=== PATIENT | male | born 2000 | race Caucasian/White ===

== ENCOUNTER 2022-12-19 10:05 | Emergency (ER) | payer BC, SELFPAY ==
[2022-12-19 10:15] VITALS: BP 141/98; PULSE 105; RESP 18; TEMP 36.7; O2SAT 100
--- NOTE | 2022-12-19 10:19 | ED.ABDPAIN ---
HPI - Abdominal Pain General Chief Complaint: Nausea/Vomiting/Diarrhea Stated Complaint: Abdominal Pain/Vomiting Source: patient and RN notes reviewed History of Present Illness HPI narrative: 22 yo M presents to urgent care with complaints of vomiting, diarrhea, and abdominal pain x 2-3 days. Pt states he was constipated so hes been taking Miralax and had some diarrhea this morning. Pt states he has been having abdominal pains ever since he had surgery in Oct. Pt states his abdominal pains alternate from left to right. Pt states the pains have gotten a little worse in the last 2 days. Denies any fevers, chills, chest pain, or SOB. Pt denies any sore throat or ear pain. Related Data Home Medications Medication Instructions Recorded Confirmed quetiapine 25 mg tablet (Seroquel) 25 mg PO HS 12/19/22 12/19/22 Allergies Allergy/AdvReac Type Severity Reaction Status Date / Time No Known Allergies Allergy Verified 12/19/22 10:25 Review of Systems Review of Systems: Pertinent positives and pertinent negatives per HPI. PMFSH Comments At the time of my signature, I reviewed and agree with the nursing past medical, surgical, social, and family history. There is no relevant family history pertinent to the patient complaint. Exam Narrative: GENERAL: This is a well-nourished, well-developed patient, in no apparent distress. HEAD: normocephalic, atraumatic. EYES: Sclera clear/white. Vision is grossly intact. EARS: External ears normal, auditory canals clear and without drainage, TMs normal without perforation. Hearing grossly intact. NOSE: External nose normal with no obvious nasal discharge, nares without redness, no rhinorrhea. THROAT: Mucous membranes moist, posterior pharynx clear. NECK: Neck supple, non-tender without lymphadenopathy, masses or thyromegaly. CARDIOVASCULAR: Regular rate and rhythm without murmurs, gallops, or rubs. RESPIRATORY: Clear to auscultation. Breath sounds equal bilaterally. No wheezes, rales, or rhonchi. GASTROINTESTINAL: Abdomen soft, tender to left upper and left lower currently. SKIN: warm, intact with no suspicious lesions or rash, good texture and turgor. NEURO: awake, alert, and oriented to person, place and time. There were no obvious focal neurologic abnormalities. Course Course Level of Care: Express Care Visit Vital Signs Vital signs: Vital Signs Temperature 98.1 F 12/19/22 10:15 Pulse Rate 105 H 12/19/22 10:15 Respiratory Rate 18 12/19/22 10:15 Blood Pressure 141/98 H 12/19/22 10:15 Pulse Oximetry 100 12/19/22 10:15 Oxygen Delivery Room Air 12/19/22 10:15 Temperature 98.1 F 12/19/22 10:28 Pulse Rate 105 H 12/19/22 10:28 Respiratory Rate 18 12/19/22 10:28 Blood Pressure 141/98 H 12/19/22 10:28 Pulse Oximetry 100 12/19/22 10:28 Oxygen Delivery Room Air 12/19/22 10:28 Reviewed MDM - Abdominal Pain MDM Narrative Medical decision making narrative: You've been diagnosed with a viral illness that would not require antibiotics at this time. Take the Zofran ODT at home as directed for nausea and get plenty of fluids. You may take Imodium for diarrhea and the Bentyl for abdominal cramping. If you would like to eat food, you should follow the BRAT diet (bananas, rice, applesauce, and toast, or things of the like). If you develop any new or worsening symptoms, you should go to the emergency dept without hesitation. Follow up with your gas leak inspector in 2-5 days. PT was instructed to go to the ER with any new or worsening symptoms. Differential Diagnosis Differential diagnosis: Likely constipation, gastroenteritis and other (dehydration) Critical Care Time Critical Care Time Critical Care Time: No Discharge Plan Discharge Clinical Impression: Gastroenteritis Patient Disposition: Home, Self-Care Condition: Stable Instructions: Gastroenteritis (DC) Additional Instructions: You've been diagnosed with a viral illness that wo
[2022-12-19 10:28] VITALS: BP 141/98; PULSE 105; RESP 18; TEMP 36.7; O2SAT 100
== END 2022-12-19 10:40 | disposition home or self-care (01) ==
PROVIDERS: Emergency Provider Nurse Practitioner Family
DX: K52.9 Noninfective gastroenteritis and colitis, unspecified (principal); F32.A Depression, unspecified
CPT/HCPCS: 99213; G0463

== ENCOUNTER 2022-12-30 11:47 | Emergency (ER) | payer BC, SELFPAY ==
[2022-12-30 11:54] VITALS: BP 133/98; PULSE 116; RESP 20; TEMP 37; O2SAT 100
--- NOTE | 2022-12-30 11:54 | ED.ABDPAIN ---
HPI - Abdominal Pain General Chief Complaint: Abdominal Pain Stated Complaint: Abdominal Pain Time Seen by Provider: 12/30/22 11:54 Source: patient and RN notes reviewed History of Present Illness HPI narrative: Patient is a 22-year-old male who presents to urgent care with complaints of continuing abdominal pain, nausea and loose stools. Patient was seen at our facility last week for the same symptoms and was given Bentyl and Zofran. Patient was advised to go to the emergency room if symptoms persisted. Patient states that Friday the symptoms started back up and he has had multiple bouts of vomiting today with some lightheadedness and abdominal discomfort. Patient denies any fevers. Patient has not followed up with the primary care doctor. Currently denies any nausea at this time. Patient is requesting a work note. No other acute complaints. No acute distress noted. Patient aware of the plan of care. Some parts of this dictation were generated by voice recognition software and may contain typographical and/or grammatical inaccuracies. Related Data Home Medications Medication Instructions Recorded Confirmed quetiapine 25 mg tablet (Seroquel) 25 mg PO HS 12/19/22 12/19/22 Allergies Allergy/AdvReac Type Severity Reaction Status Date / Time No Known Allergies Allergy Verified 12/19/22 10:25 Review of Systems Review of Systems: CONSTITUTIONAL: Denies fever, chills, or sweats. EYES: Denies visual changes, redness, or discharge. ENT: Denies rhinorrhea, congestion, sore throat, or otalgia. CARDIOVASCULAR: Denies chest pain, palpitations, or edema. RESPIRATORY: Denies cough or dyspnea. GASTROINTESTINAL: Reports abdominal discomfort, nausea, vomiting and loose stools GENITOURINARY: Denies dysuria or hematuria. SKIN: Denies rash or itching. MUSCULOSKELETAL: Denies back pain, joint pain, or myalgia. NEUROLOGIC: Denies headache, numbness, or weakness. All other systems reviewed are negative, except as documented in HPI. PMFSH Comments At the time of my signature, I reviewed and agree with the nursing past medical, surgical, social, and family history. There is no relevant family history pertinent to the patient complaint. Exam Narrative: GENERAL: This is a well-nourished, well-developed patient, in no apparent distress. HEAD: normocephalic, atraumatic. EYES: PERRL. Sclera clear/white. Vision is grossly intact. EARS: External ears normal NOSE: External nose normal with no obvious nasal discharge, nares without redness, no rhinorrhea. THROAT: Mucous membranes moist NECK: Neck supple GASTROINTESTINAL: Abdomen soft, diffuse abdominal tenderness, nondistended. Bowel sounds are hypo active. SKIN: warm, intact with no suspicious lesions or rash, good texture and turgor. NEURO: awake, alert, and oriented to person, place and time. There were no obvious focal neurologic abnormalities. EXTREMITIES: No clubbing, cyanosis, or edema. Course Course Level of Care: Express Care Visit Vital Signs Vital signs: Vital Signs Temperature 98.6 F 12/30/22 11:54 Pulse Rate 116 H 12/30/22 11:54 Respiratory Rate 20 12/30/22 11:54 Blood Pressure 133/98 H 12/30/22 11:54 Pulse Oximetry 100 12/30/22 11:54 Oxygen Delivery Room Air 12/30/22 11:54 Temperature 98.6 F 12/30/22 11:54 Pulse Rate 116 H 12/30/22 11:54 Respiratory Rate 20 12/30/22 11:54 Blood Pressure 133/98 H 12/30/22 11:54 Pulse Oximetry 100 12/30/22 11:54 Oxygen Delivery Room Air 12/30/22 11:54 Reviewed- Patient is informed that they may have pre-hypertension or hypertension based on a blood pressure reading in the department. I recommend the patient call the primary care provider listed on their discharge instructions or a physician of their choice this week to arrange follow-up for further evaluation of possible pre-hypertension or hypertension. MDM - Abdominal Pain MDM Narrative Medical decision making narrative: Advised the patient t
== END 2022-12-30 12:29 | disposition left against medical advice (07) ==
PROVIDERS: Emergency Provider Nurse Practitioner Family
DX: R10.84 Generalized abdominal pain (principal)
CPT/HCPCS: 99211; G0463

== ENCOUNTER 2022-12-30 17:56 | Inpatient (IN) | payer BC, SELFPAY ==
[2022-12-30] VITALS (31 sets, daily range): BP systolic 120–154; BP diastolic 77–108; PULSE 91–120; RESP 15–23; O2SAT 97–100
--- NOTE | ~2022-12-30 | XR_ITS ---
EXAMINATION: XR chest 1V portable 12/30/2022 19:54 INDICATION: Epigastric pain PROCEDURE: 2 view chest COMPARISON: No prior studies for comparison. FINDINGS: The lungs are clear. The cardiomediastinal silhouette is within normal limits. There are no pleural effusions. There is no pneumothorax suspected. IMPRESSION: 1: NO ACUTE CARDIOPULMONARY DISEASE. Reviewed, dictated and finalized at location A.
--- NOTE | ~2022-12-30 | MR_ITS ---
EXAMINATION: MR MRCP wo/w con/w 3D wo ind DATE: 12/31/2022 17:09 INDICATION: Pancreatitis. Cyst. TECHNIQUE: Magnetic resonance imaging (MRI) of the abdomen was performed without and with 18 mL Multi anurag intravenous contrast. Sequences included coronal T2-weighted SS-FSE, coronal T2-weighted FS SS- FSE, coronal T2-weighted FS FIESTA, axial T2-weighted FS FIESTA, axial T2-weighted FIESTA, sagittal T 2-weighted SS-FSE, axial T1-weighted dual-echo FSPGR, axial T2-weighted SS-FSE, axial T1-weighted LAV A, axial T2-weighted STIR FSE. Thick-slab T2-weighted FRFSE-XL images were obtained for magnetic reso nance cholangiopancreatography (MRCP). Rotating maximum intensity projection 3-D reconstructions of t he volumetric data were created by the technologist. Postcontrast sequences included a time course of axial T1-weighted LAVA. COMPARISON: CT dated 12/30/2022 FINDINGS: ABDOMEN MRI: Heart size is normal. No pericardial effusion. Very small bilateral posterior layering pleural effusi ons. Mild dependent consolidation in the posterior left lower lobe which is new since the prior CT mo st likely representing dependent atelectasis. There is mild intrahepatic biliary ductal dilation. Jacqui er, gallbladder, spleen, bilateral kidneys and left adrenal gland are normal. There are a couple 8-9 mm fat saturating nodules is corresponding fat attenuation on CT in the right adrenal gland consisten t with myelolipomas. Low signal intensity associated with the small coarse calcifications at the righ t adrenal gland which likely represents sequela of prior hemorrhage or infection. No pathologically e nlarged abdominal lymphadenopathy. Mild thoracic spondylosis. Normal marrow signal throughout with no pathologic marrow replacing process. Large multiloculated cystic lesion which appears to arise from the tail of the pancreas which measure s 20.9 cm craniocaudally and 15.4 x 9.4 cm in maximal axial dimensions. The mass exerts mass effect u abdiel the more anterior stomach and on the distal transverse colon and small bowel which are displaced inferiorly. There is a relatively uniform approximately 2 mm thick smooth peripheral wall. No nodular soft tissue component or discernible enhancement associated with internal septations which are best appreciated on the thin SS-FSE T2-weighted sequences in axial, sagittal and coronal imaging planes. T he smaller 3.8 x 3.7 x 2.6 cm cystic lesion at the neck of the pancreas demonstrates a small amount o f more amorphous intraluminal material with decreased signal on the T2-weighted images but also witho ut evident enhancing soft tissue component. On the coronal and axial thin SS-FSE T2-weighted sequence s there appears to be communication with the main pancreatic duct which measures approximately 3 mm. Definitive cortication between the larger cystic lesion in the main pancreatic duct is unable be iden tified. There is inflammatory stranding with T2 hyperintense edema surrounding the large pancreatic m ass and extending to the retroperitoneal fat of the left and right upper abdomen and extending more c audally into the lower quadrants posterior to the paracolic gutters which is consistent with provided history of acute pancreatitis. ABDOMEN MRCP: No intra or extra hepatic biliary ductal dilation. The common bile duct measures up to 4 mm maximal d iameter which is normal. No choledocholithiasis or other intra-abdominal ductal filling defects appre ciated. Aspiration noted there is mild dilation of the main pancreatic duct the region of the neck of the pancreas which tapers to normal caliber in the more distal body and tail. IMPRESSION: 1. Acute interstitial pancreatitis with a couple complex cystic lesions the larger at the tail the pa ncreas measuring up to 20.9 cm and the smaller measuring 3.8 cm the neck of the pancreas. The former contains multiple very thin internal septations without discernible enhanc
--- NOTE | ~2022-12-30 | CT_ITS ---
EXAMINATION: CT abdomen pelvis w con DATE: 12/30/2022 19:40 INDICATION: Abdominal pain TECHNIQUE: Computed tomography (CT) of the abdomen and pelvis was performed with 100 cc Omnipaque 350 intravenous contrast. The dose-length product was 553.82 mGy-cm. Automated exposure control and iter ative reconstruction technique were employed. COMPARISON: None. FINDINGS: There is a large cystic mass in the left upper abdomen measuring 19 x 12.6 cm greatest mariya nal dimension, no free air. There is a cystic mass in the head of the pancreas measuring 3.1 cm. Ther e is mild prominence of the pancreatic duct. No significant vascular abnormality. No lymphadenopathy. There is free fluid in the pelvis. With mass effect on the stomach. There are multiple varices at th e splenic hilum. Spleen is mildly prominent. Lung bases are unremarkable. Heart size normal. No significant pleural or pericardial effusion. The l iver, left adrenal gland and kidneys are unremarkable. There are coarse calcifications of the right a drenal gland, possibly sequela of previous trauma or infection. Gallbladder is contracted. Nonobstruc tive bowel gas pattern. IMPRESSION: 1. Large cystic mass in the left upper abdomen measuring up to 19 cm with mass effect on the adjacent bowel. This could represent a large pancreatic pseudocyst with a second cyst at the pancreatic head measuring 3.1 cm. The differential diagnosis includes pseudocyst, intraductal papillary mucinous neop lasm (IPMN), mucinous cystic neoplasm (MCN), and the less common serous cystadenoma and neuroendocrin e tumor. Correlate for previous history of pancreatitis. 2: Multiple varices are identified at the splenic hilum. Cannot exclude portal hypertension. 3: Moderate free fluid in the pelvis of uncertain origin. Reviewed, dictated and finalized at location A. IMPRESSION: 1. Large cystic mass in the left upper abdomen measuring up to 19 cm with mass effect on the adjacent bowel. This could represent a large pancreatic pseudocys t with a second cyst at the pancreatic head measuring 3.1 cm. The differential diagnosis includes pseudocyst, intraductal papillary mucinous neoplasm (IPMN), mucinous cystic neoplasm (MCN), and the less common serous cystadenoma and neur oendocrine tumor. Correlate for previous history of pancreatitis. 2: Multiple varices are identified at the splenic hilum. Cannot exclude portal hypertension. 3: Moderate free fluid in the pelvis of uncertain origin.
--- NOTE | ~2022-12-30 | XR_ITS ---
XR abdomen/kub 1V 12/31/2022 18:40 INDICATION: Vomiting with abdominal pain TECHNIQUE: KUB COMPARISON: None FINDINGS: Bowel gas pattern is normal. There is no evidence of free air, mass, organomegaly, ascites or obstruction. No abnormal calculi are seen. The bones appear intact. IMPRESSION: 1: No acute abdominal abnormality identified. Reviewed, dictated and finalized at location A.
--- NOTE | 2022-12-30 18:28 | ED.ABDPAIN ---
HPI - Abdominal Pain General Chief Complaint: Abdominal Pain <SAMPSON Santana Last Filed: 12/31/22 02:57> Stated Complaint: abd pain <SAMPSON Santana Last Filed: 12/31/22 02:57> Time Seen by Provider: 12/30/22 18:09 <Veronica Santamaria PA-C - Last Filed: 12/31/22 02:57> History of Present Illness HPI narrative: 22-year-old male with a history of substance abuse reports for evaluation of generalized abdominal pain for 2 months, worsening over the past week especially over the past 3 days. Patient reports 2 episodes of diarrhea daily and multiple episodes of vomiting the past week. States he has not been able to eat the past week because every time he eats, he vomits. Patient also reporting 2 episodes of diarrhea per day, nonbloody and nonmelanotic. He was evaluated by urgent care on 12/19, diagnosed with gastroenteritis and prescribed Zofran and Bentyl with improvement in pain. States the pain worsened again 3 days ago. Patient states the pain started in October after he was hospitalized for a heroin overdosed and then subsequently sent to a psychiatric facility and was started on Seroquel. Denies fevers, urinary complaints, focal numbness or weakness, chest pain. Denies history of biliary disease. Last reported alcohol drink was 2 weeks ago, states he had 4 drinks at that time. <Veronica Santamaria PA-C - Last Filed: 12/31/22 02:57> Related Data Home Medications: Home Medications Medication Instructions Recorded Confirmed quetiapine 25 mg tablet (Seroquel) 200 mg PO HS 12/19/22 12/31/22 <SAMPSON Santana Last Filed: 12/31/22 02:57> Allergies/Adverse Reactions: Allergies Allergy/AdvReac Type Severity Reaction Status Date / Time No Known Allergies Allergy Verified 12/19/22 10:25 <SAMPSON Santana Last Filed: 12/31/22 02:57> Review of Systems Review of Systems: CONSTITUTIONAL: Denies fever, chills EYES: Denies visual changes, redness, or discharge. ENT: Denies rhinorrhea, congestion, sore throat, or otalgia. CARDIOVASCULAR: Denies chest pain, palpitations, or edema. RESPIRATORY: Denies cough or dyspnea. GASTROINTESTINAL: See HPI GENITOURINARY: Denies dysuria or hematuria. SKIN: Denies rash or itching. MUSCULOSKELETAL: Denies back pain, joint pain, or myalgia. NEUROLOGIC: Denies headache, numbness, dizziness, or weakness. PSYCHIATRIC: Denies anxiety or depression. 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 History of tonsillectomy <Veronica Santamaria PA-C - Last Filed: 12/31/22 02:57> Family History Family History: Family History Father Cancer Grandparent Cancer <Veronica Santamaria PA-C - Last Filed: 12/31/22 02:57> Social History Social History: Social History (Updated 12/31/22 @ 13:03 by Lina Childs PA-C) Social History: Surrogate medical decision maker: Meeta Ahn. Code status: Full code. Smoking packs per day: 1 Smoking cigarettes per day: 20.0 Years smoked: 7 Smoking pack-years: 7.00 Smoking status: Current every day smoker Tobacco type: cigarettes Alcohol intake: current Drinks per week: 1 Substance use: current Substance use type: former substance user, marijuana, heroin, amphetamines, methamphetamine and prescription drug Other substance usage details: Current marijuana use. Last use: 12/28/2022 Lack of Transportation: No
[2022-12-30 18:51] LABS: Basophils Absolute Auto 0.1 K/mm3 (0.0-0.1); Basophils Percent Auto 0.3 % (0.2-1.2); Eosinophils Percent Auto 0.2 % (0-4.4); Hematocrit 43.4 % (42.0-52.0); Hemoglobin 14.5 g/dL (14.0-18.0); Immature Granulocyte Absolute 0.09 K/mm3 (0.00-0.031); Immature Granulocyte Percent A 0.5 % (0-0.5); Lymphocytes Absolute Auto 1.36 K/mm3 (0.9-3.2); Lymphocytes Percent Auto 7.4 % (18.3-44.2); Mean Corpuscular HGB Conc 33.4 g/dl (32-36); Mean Corpuscular Hemoglobin 29.7 pg (26-34); Mean Corpuscular Volume 88.9 fl (80-100); Mean Platelet Volume 9.8 fl (7.4-10.4); Monocytes Absolute Auto 1.3 K/mm3 (0.1-0.6); Monocytes Percent Auto 7.2 % (2.6-8.5); Neutrophils Absolute Auto 15.6 K/mm3 (1.3-6.7); Neutrophils Percent Auto 84.4 % (45.5-73.1); Platelet Count Result 286 k/mm3 (150-375); Red Blood Count 4.88 M/mm3 (4.6-6.20); Red Cell Distribution Width 14.1 % (11.5-14.5); White Blood Count 18.5 K/mm3 (4.5-10.0)
[2022-12-30 19:03] LABS: Alanine Aminotransferase 27 U/L (6-50); Albumin Level 4.2 g/dL (3.5-5.1); Alkaline Phosphatase 120 U/L (38-126); Anion Gap 10 mmol/L (8-16); Aspartate Amino Transferase 17 U/L (17-59); Bilirubin,Total 0.8 mg/dL (0.2-1.3); Blood Urea Nitrogen 14 mg/dL (9-20); Calcium 9.8 mg/dL (8.4-10.2); Carbon Dioxide 26 mmol/L (22-30); Chloride 96 mmol/L (98-107); Estimated Glomerular Filt Rate > 60; Glucose 118 mg/dL (65-110); Lipase 1315 U/L (23-300); Potassium 3.9 mmol/L (3.4-5.0); Sodium 132 mmol/L (137-145)
[2022-12-30 19:05] LABS: Lactic Acid Reflex 0.9 mmol/L (0.7-2.0)
[2022-12-30] MEDS: BELLADONNA ALK/PHENOB ELIX 10 ML, MAG HYDROX/ALUMINUM HYD/SIMETH 30 ML, LIDOCAINE HCL 2... PO (19:15)
[2022-12-30] MEDS: SODIUM CHLORIDE 0.9% IV 1,000 ML 999 ML IV CONT ×2 (19:20→20:43)
[2022-12-30] MEDS: ONDANSETRON INJ 4 MG/2 ML VIAL IV PUSH (19:22)
[2022-12-30] MEDS: FAMOTIDINE 20 MG/2 ML VIAL IV PUSH (19:23)
[2022-12-30] MEDS: KETOROLAC 30 MG/ML VIAL (*BKC) IV PUSH (19:25)
[2022-12-30 19:47] LABS: Cholesterol 145 mg/dL (0-200); HDL Direct 29 mg/dL; Triglycerides 129 mg/dL (<150)
[2022-12-30 19:57] LABS: LDL Cholesterol Direct 76 mg/dL
[2022-12-30 20:02] LABS: Ethanol < 10 mg/dL (<10)
[2022-12-30] MEDS: MORPHINE SULFATE (*CRX) 4 MG/ML INJ IV PUSH (20:10)
[2022-12-30 22:03] LABS: Appearance Urine Clear (Clear); Bilirubin Urine 1+ (Negative); Blood Urine Negative (Negative); Color Urine Yellow (Yellow); Glucose Urine UA Negative (Negative); Ketones Urine Negative (Negative); Leukocyte Esterase Ur Negative LEU/UL (Negative); Nitrate Urine Negative (Negative); Protein Urine 2+ mg/dL (Negative); Specific Grav Ur <= 1.005 (1.001-1.035); Urobilinogen Urine 0.2 mg/dL (<2.0)
[2022-12-30 22:04] LABS: Barbiturate Screen Urine Negative (Negative); Benzodiazepines Screen Urine Negative (Negative)
[2022-12-30 22:07] LABS: Amphetamine Screen Urine Negative (Negative); Cannabinoid Screen Urine Positive (Negative); Cocaine Screen Urine Negative (Negative); Methadone Screen Urine Negative (Negative); Opiate Screen Urine Positive (Negative); Phencyclidine Screen Urine Negative (Negative)
[2022-12-30 22:10] LABS: Add Urine Microscopic? YES
[2022-12-30 22:11] LABS: Bacteria Urine None Seen /hpf; RBC Urine None seen /hpf (0-2); Squamous Epithelial Cell Urine Rare /hpf (Few); WBC Urine None seen /hpf (0-3)
[2022-12-31] VITALS (25 sets, daily range): BP systolic 108–134; BP diastolic 66–90; PULSE 70–103; RESP 8–25; TEMP 36.3–36.9; O2SAT 97–100; BMI 28.3
[2022-12-31] MEDS: DEXTROSE 5%/0.45% SOD CHL 1,000 ML 100 ML IV CONT ×2 (02:30→11:53)
[2022-12-31] MEDS: ONDANSETRON INJ 4 MG/2 ML VIAL IV PUSH ×5 (02:37→22:58)
[2022-12-31] MEDS: KETOROLAC 15 MG/ML VIAL (*BKC) 30 MG IV PUSH (02:37)
[2022-12-31] MEDS: MORPHINE SULFATE (*CRX) 4 MG/ML INJ IV PUSH ×5 (02:38→22:54)
[2022-12-31] MEDS: QUEtiapine FUMARATE 100 MG TABLET 200 MG PO (02:38)
--- NOTE | 2022-12-31 07:30 | PC.NURSE ---
pt sleeping on stretcher. no distress noted. continue waiting bed placement at [facility].
--- NOTE | 2022-12-31 11:40 | ADMGEN ---
This patient, Nghia Castro, was admitted to [facility] Surg Room 329-01. Patient/family oriented to hospital policies and general routines including ID bracelet, bed and alarms, visiting hours, pain management, procedures, bathroom and other care routines, personal items, smoking policy, room service/diet, and visiting hours. Information on how to activate the Rapid Response Team has been discussed. Patient/Family are encouraged to report perceived risks to care and to ask questions if they do not understand what they are told or what they should do.
--- NOTE | 2022-12-31 12:50 | PM.IMHP ---
H&P: HPI History of Present Illness Date/Time: 12/31/22 12:50 Chief Complaint: Abdominal pain. Narrative: This is a pleasant 22-year-old male with history of substance abuse who presented to the emergency department for evaluation of abdominal pain. Patient provides the following history. He initially started having abdominal pain in October at about the same time he was hospitalized following a heroin overdose (it sounds as though he had an acute kidney injury related to rhabdomyolysis and right lower extremity compartment syndrome for which he underwent fasciotomy). He was subsequently sent to a rehab facility and he was started on Seroquel at that time. He continues to have intermittent episodes of generalized abdominal pain over the last 2 months though they have been increasingly frequent this last 1 week and much worse over the last 3 or 4 days. He has difficulties describing the pain but indicates that it is severe, diffusely throughout the upper abdomen. It is worse with movement and palpation. He has not had much of an appetite and endorses pretty significant nausea, occasional emesis which he describes as yellow-green in nature, and hiccups. He has also had heartburn more so than he has ever had and tried TUMS yesterday without benefit. He was seen at urgent care on 12/19/2022 for similar symptoms at which time he was diagnosed with gastroenteritis and prescribed Zofran and Bentyl with some improvement. He reports cold sweats but has not had a fever to his knowledge. He denies sick contacts. His vital signs were stable on arrival to the ED. Pertinent labs included WBC count of 18.5, sodium 132, potassium 3.9, BUN 14, creatinine 0.70, lactic acid 0.9, normal LFTs and lipase of 1315. CT of the abdomen and pelvis showed a large cystic mass in the left upper abdomen measuring up to 19 cm with mass effect on the adjacent bowel which could be a pancreatic pseudocyst though differential includes intraductal papillary mucinous neoplasm, mucinous cystic neoplasm, and less common neuroendocrine tumor or serous cystadenoma. Multiple varices were identified at the splenic hilum and there was a moderate amount of free fluid in the pelvis. Due to the size of the mass noted on CT, transfer was initiated to a tertiary care facility and he is on the wait list at [facility] though they do not anticipate having a bed for several days. He has been admitted to the medical floor for supportive care. At this time he is resting fairly comfortably and is receiving morphine for pain. He denies personal and family history of pancreatitis. He very rarely drinks alcohol and denies recent use. No history of hypertriglyceridemia. He is only on Seroquel at home. Of note the patient has been clean since his overdose in October. In fact he moved to the area to stay with his aunt and uncle to get a clean start. He is originally from [place]. Review of Systems Review of Systems: Twelve systems were reviewed and are negative except for as per HPI. 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 History of tonsillectomy Family History Family History Father Cancer Grandparent Cancer Social History Social History Social History: Surrogate medical decision maker: Meeta Ahn. Code status: Full code. Smoking packs per day: 1 Smoking cigarettes per day: 20.0 Years smoked: 7 Smoking pack-years: 7.00 Smoking status: Current every day smoker Tobacco type: cigarettes Alcohol intake: current
--- NOTE | 2022-12-31 12:58 | WPDGICN ---
Assessment and Plan Assessment and plan (1) Acute pancreatitis: Code(s): K85.90 - Acute pancreatitis without necrosis or infection, unspecified Status: Acute Assessment and Plan: His amylase is elevated now. I would suspect that it probably had been hired some point but we do not have any other values to compare it. Because of his nausea and vomiting as well as the pancreatitis we will need to keep him NPO or at most on clear liquids. (2) Abdominal mass, left upper quadrant: Code(s): R19.02 - Left upper quadrant abdominal swelling, mass and lump Status: Acute Assessment and Plan: This mass which is large, appears to be a large pseudocyst but could also be a pancreatic cystic tumor of some sort. The patient will need endoscopic ultrasound with FNA, and transferred to [facility] is pending. CT scan shows: IMPRESSION: 1. Large cystic mass in the left upper abdomen measuring up to 19 cm with mass effect on the adjacent bowel. This could represent a large pancreatic pseudocyst with a second cyst at the pancreatic head measuring 3.1 cm. The differential diagnosis includes pseudocyst, intraductal papillary mucinous neoplasm (IPMN), mucinous cystic neoplasm (MCN), and the less common serous cystadenoma and neuroendocrine tumor. Correlate for previous history of pancreatitis. 2:? Multiple varices are identified at the splenic hilum. Cannot exclude portal hypertension. 3: Moderate free fluid in the pelvis of uncertain origin. (3) Drug abuse: Code(s): F19.10 - Other psychoactive substance abuse, uncomplicated Status: Acute Assessment and Plan: The patient states that he was a heroin overdose that resulted in him needing surgery on his leg to decompress it. That was done in October in [place]. He is new to this area and does not have a primary care provider. Plan I agree with the present management which is hydration with IV fluids, resting his got except for ice chips. MR ARVIND has been ordered and will be helpful. Eventually he will need to be transferred to a tertiary center for further treatment GI Consult Note Consult date/time: 12/31/22 12:58 HPI: Nghia Castro is a 22 year old male presented to the emergency room yesterday with a history of having had abdominal pain for the last couple of months but particularly over the past 3 days. Ten Friday he has had a constant discomfort in his abdomen primarily in both lower quadrants but also in the upper left side. He has not been able to eat and has had multiple episodes of vomiting for the past 4 days. He has not had a fever. He states that this all began in October when he was acutely hospitalized. He had taken an overdose of heroin and was ?left on the couch. Apparently his right leg was dangling in a way that it accumulated a large amount of fluid and he had have surgery to release the pressure because he was in danger of losing his leg. He states that he received Ativan during his hospitalization apparently was supposed to be discharged an antidepressant. He was not on any narcotics after discharge. He denies drinking alcohol except on rare occasions. He has never had problems with this pancreas or liver in the past. He has not had a fever recently. Emergency room he was found have an elevated lipase 13 15. Liver enzymes were normal. A CT scan however showed a large cystic mass in the left upper abdomen, 19 cm, consistent with possible pancreatic pseudocyst. He also had varices in the splenic hilum. The emergency room physician spoke with hospitalist who not comfortable with him being admitted here. He then spent time arranging to have him transferred and has I understand he is awaiting transfer to [facility]. I agree that we do not have the expertise to perform the services he would likely need including endoscopic ultrasound and fine-needle aspiration or other drainage of pancreatic cyst fluid. Review of Systems
[2022-12-31 13:43] LABS: Lipase 1061 U/L (23-300)
--- NOTE | 2022-12-31 13:43 | PC.NURSE ---
Pt states that he would like his surrogate decision maker to be his uncle, Tim Ahn, to his contact, Aunt Meeta. He is unaware of Tim's number, but can obtain through Meeta.
[2022-12-31 13:44] LABS: Anion Gap 6 mmol/L (8-16); Blood Urea Nitrogen 11 mg/dL (9-20); Calcium 8.8 mg/dL (8.4-10.2); Carbon Dioxide 28 mmol/L (22-30); Chloride 101 mmol/L (98-107); Estimated CRCL calculation 149 ml/min; Estimated Glomerular Filt Rate > 60; Glucose 100 mg/dL (65-110); Potassium 3.9 mmol/L (3.4-5.0); Sodium 135 mmol/L (137-145)
[2022-12-31] MEDS: FOLIC ACID 1 MG/0.2 ML INJ IV PUSH (13:58)
[2022-12-31] MEDS: THIAMINE HCL 200 MG/2 ML VIAL 100 MG IV PUSH (13:58)
[2022-12-31] MEDS: SODIUM CHLORIDE 0.9% IV 1,000 ML 150 ML IV CONT ×2 (14:00→21:43)
[2022-12-31] MEDS: TEMAZEPAM (*CRX) 15 MG CAPSULE PO (21:43)
[2023-01-01] MEDS: PROMETHAZINE HCL 25 MG/ML AMPUL 12.5 MG IV PUSH (00:11)
[2023-01-01] MEDS: diphenhydrAMINE HCl CAP 25 MG CAPSULE PO (01:50)
[2023-01-01] MEDS: MORPHINE SULFATE (*CRX) 4 MG/ML INJ IV PUSH ×7 (02:00→21:25)
[2023-01-01] MEDS: SCOPOLAMINE 1.5 MG PATCH TRANSDERM ×2 (02:51→11:56)
[2023-01-01] MEDS: LORazepam INJ (*CRX) 2 MG/ML VIAL 0.5 MG IV PUSH (02:52)
[2023-01-01] MEDS: SODIUM CHLORIDE 0.9% IV 1,000 ML 150 ML IV CONT ×2 (05:55→11:55)
[2023-01-01] MEDS: ONDANSETRON INJ 4 MG/2 ML VIAL IV PUSH ×2 (05:56→15:32)
[2023-01-01 06:00] VITALS: BP 141/97; PULSE 100; RESP 18; TEMP 37.1; O2SAT 100
[2023-01-01 06:05] LABS: Basophils Percent Auto 0.3 % (0.2-1.2); Eosinophils Absolute Auto 0.1 K/mm3 (0-0.3); Eosinophils Percent Auto 1.2 % (0-4.4); Hematocrit 41.2 % (42.0-52.0); Hemoglobin 13.1 g/dL (14.0-18.0); Immature Granulocyte Absolute 0.05 K/mm3 (0.00-0.031); Immature Granulocyte Percent A 0.4 % (0-0.5); Lymphocytes Absolute Auto 1.49 K/mm3 (0.9-3.2); Lymphocytes Percent Auto 12.7 % (18.3-44.2); Mean Corpuscular HGB Conc 31.8 g/dl (32-36); Mean Corpuscular Hemoglobin 28.5 pg (26-34); Mean Corpuscular Volume 89.8 fl (80-100); Mean Platelet Volume 10.1 fl (7.4-10.4); Monocytes Absolute Auto 0.9 K/mm3 (0.1-0.6); Monocytes Percent Auto 7.5 % (2.6-8.5); Neutrophils Absolute Auto 9.2 K/mm3 (1.3-6.7); Neutrophils Percent Auto 77.9 % (45.5-73.1); Platelet Count Result 225 k/mm3 (150-375); Red Blood Count 4.59 M/mm3 (4.6-6.20); Red Cell Distribution Width 13.5 % (11.5-14.5); White Blood Count 11.8 K/mm3 (4.5-10.0)
[2023-01-01 06:24] LABS: Alanine Aminotransferase 19 U/L (6-50); Albumin Level 3.4 g/dL (3.5-5.1); Alkaline Phosphatase 101 U/L (38-126); Anion Gap 6 mmol/L (8-16); Aspartate Amino Transferase 15 U/L (17-59); Bilirubin,Total 0.8 mg/dL (0.2-1.3); Blood Urea Nitrogen 8 mg/dL (9-20); Calcium 8.8 mg/dL (8.4-10.2); Carbon Dioxide 30 mmol/L (22-30); Chloride 101 mmol/L (98-107); Estimated CRCL calculation 149 ml/min; Estimated Glomerular Filt Rate > 60; Glucose 84 mg/dL (65-110); Lipase 802 U/L (23-300); Potassium 3.9 mmol/L (3.4-5.0); Sodium 137 mmol/L (137-145)
--- NOTE | 2023-01-01 07:23 | WPDGIPROGNO ---
Progress Note: A&P Assessment and Plan (1) Acute pancreatitis: Code(s): K85.90 - Acute pancreatitis without necrosis or infection, unspecified Status: Acute Assessment and Plan: His amylase is elevated now. I would suspect that it probably had been hired some point but we do not have any other values to compare it. Because of his nausea and vomiting as well as the pancreatitis we will need to keep him NPO or at most on clear liquids. (2) Abdominal mass, left upper quadrant: Code(s): R19.02 - Left upper quadrant abdominal swelling, mass and lump Status: Acute Assessment and Plan: This mass which is large, appears to be a large pseudocyst but could also be a pancreatic cystic tumor of some sort. The patient will need endoscopic ultrasound with FNA, and transferred to [facility] is pending. CT scan shows: IMPRESSION: 1. Large cystic mass in the left upper abdomen measuring up to 19 cm with mass effect on the adjacent bowel. This could represent a large pancreatic pseudocyst with a second cyst at the pancreatic head measuring 3.1 cm. The differential diagnosis includes pseudocyst, intraductal papillary mucinous neoplasm (IPMN), mucinous cystic neoplasm (MCN), and the less common serous cystadenoma and neuroendocrine tumor. Correlate for previous history of pancreatitis. 2:? Multiple varices are identified at the splenic hilum. Cannot exclude portal hypertension. 3: Moderate free fluid in the pelvis of uncertain origin. (3) Drug abuse: Code(s): F19.10 - Other psychoactive substance abuse, uncomplicated Status: Acute Assessment and Plan: The patient states that he was a heroin overdose that resulted in him needing surgery on his leg to decompress it. That was done in October in [place]. He is new to this area and does not have a primary care provider. (4) Nausea and vomiting: Code(s): R11.2 - Nausea with vomiting, unspecified Status: Acute Assessment and Plan: He has had protracted refractory by vomiting all night long. He has not responded to Zofran, promethazine, and scopolamine patch. I will try him on Reglan. Plan I agree with the present management which is hydration with IV fluids, resting his got except for ice chips. MR ARVIND has been ordered and will be helpful. Eventually he will need to be transferred to a tertiary center for further treatment Subjective Date/time seen: 01/01/23 07:23 the patient has had protracted and relentless vomiting throughout the night. Medications including Zofran, promethazine, and scopolamine so far have not helped. He is not having any more pain that he had had on admission. He states that he would feel better if he could take a shower and I will pass that on to the staff. the nursing staff states that the patient has been living with his aunt. They have been in contact with her she states that they are fairly certain that he has not been abusing alcohol or other substances since he came to live with her 2 weeks ago. Exam Const: General: alert Orientation/consciousness: patient oriented x3 Resp: Auscultation: clear to auscultation bilaterally Cardio: Rhythm: regular rhythm GI: GI Palp: Yes Soft to palpation, Yes Tenderness to palpation present (GI) (Left upper quadrant and both lower quadrants), No No hepatosplenomegaly present, Yes Palpable mass present (Left upper quadrant) and No Ascites present Auscultation: normal bowel sounds Neuro: General: patient oriented x3 Objective Data Vital Signs Vital Signs: Vital Signs - 24 hr 12/31/22 07:30 12/31/22 07:45 12/31/22 08:00 Temperature Pulse Rate 75 83 75 Respiratory Rate 16 18 14 Blood Pressure Pulse Oximetry 98 99 100 Oxygen Delivery 12/31/22 08:15 12/31/22 11:27 12/31/22 10:57 Temperature Pulse Rate 81 80 Respiratory Rate 16 16 Blood Pressure 134/72 Pulse Oximetry 99 Oxygen Delivery Room Air 12/31/22 14:00 04
[2023-01-01] MEDS: METOCLOPRAMIDE HCL INJ 10 MG/2 ML VIAL IV PUSH ×3 (07:48→18:31)
[2023-01-01] MEDS: NICOTINE (*PBKC) 21 MG PATCH 1 PATCH TRANSDERM (10:53)
[2023-01-01 11:47] LABS: Glucose Point of Care 74 mg/dl (65-105)
--- NOTE | 2023-01-01 13:12 | PM.IMPN ---
Progress Note: A&P Assessment and Plan (1) Systemic inflammatory response syndrome: Code(s): R65.10 - Systemic inflammatory response syndrome (SIRS) of non-infectious origin without acute organ dysfunction Status: Acute Assessment and Plan: Monitor (2) Acute pancreatitis: Code(s): K85.90 - Acute pancreatitis without necrosis or infection, unspecified Status: Acute Assessment and Plan: Precipitating etiology not entirely clear. He very rarely drinks alcohol, none recently. Triglycerides are well within normal limits. No mention of gallstones on imaging. He has been on Seroquel since October and he just so happens to have been having abdominal pain intermittently since that time as well. Seroquel can cause pancreatitis thus will hold for now. Continue supportive care including IV fluid rehydration and bowel rest. Analgesics and antiemetics available as needed. (3) Abdominal mass, left upper quadrant: Code(s): R19.02 - Left upper quadrant abdominal swelling, mass and lump Status: Acute Assessment and Plan: Large left upper quadrant mass noted on CT, possibly pancreatic pseudocyst with a differential diagnosis to include intraductal papillary mucinous neoplasm, mucinous cystic neoplasm, serous cystadenoma, and neuroendocrine tumor. MRCP is pending. Transfer initiated to [facility] for further workup though no bed is expected for the next several days. (4) Tobacco dependence: Code(s): F17.200 - Nicotine dependence, unspecified, uncomplicated Status: Acute Assessment and Plan: He declines the need for nicotine patch at this time. (5) Substance abuse: Code(s): F19.10 - Other psychoactive substance abuse, uncomplicated Status: Acute Assessment and Plan: Patient states he has been free of drugs since his overdose in October 2022. Plan Patient awaiting transfer to [facility]. Subjective Date/time seen: 01/01/23 13:12 Still complaining of abdominal pain Exam Narrative: General: Moderately ill-appearing male lying on his left side in bed. Weight: 92 kg. BMI: 28.3. HEENT: Normocephalic, atraumatic. PERRL, EOMI. Sclera anicteric. Tacky mucous membranes. Neck: Supple. Respiratory: Lungs are clear to auscultation bilaterally. Cardiovascular: Regular rate and rhythm with S1-S2. Gastrointestinal: Abdomen is soft and nondistended with hypoactive bowel sounds. He is tender to palpation throughout the abdomen, more so in the epigastrium and left upper quadrant. There does appear to be a bit of a palpable mass in the left upper quadrant. Demonstrates voluntary guarding but no rebound tenderness. Skin: Warm and dry. No rash or lesions on limited exam. Extremities: No cyanosis, clubbing, or edema. Radial and pedal pulses intact. Neurological: Alert. Cranial nerves 2-12 are grossly intact. No gross focal deficits to casual conversation. Psychiatric: Pleasant and cooperative with normal mood and affect. Judgment and insight intact. Const: General: alert Orientation/consciousness: patient oriented x3 Resp: Auscultation: clear to auscultation bilaterally Cardio: Rhythm: regular rhythm GI: Auscultation: normal bowel sounds Neuro: General: patient oriented x3 Objective Data Vital Signs Vital Signs: Vital Signs - 24 hr 12/31/22 14:00 12/31/22 21:01 12/31/22 20:00 Temperature 97.4 F L 98.4 F Pulse Rate 70 90 Respiratory Rate 14 16 Blood Pressure 131/90 131/87 Pulse Oximetry 100 100 Oxygen Delivery Room Air 01/01/23 06:00 01/01/23 08:00 Temperature 98.8 F Pulse Rate 100 Respiratory Rate 18 Blood Pressure 141/97 H Pulse Oximetry 100 Oxygen Delivery Room Air Intake/Output Intake/Output: Intake & Output 12/29/22 12/30/22 12/31/22 01/01/23 23:59 23:59 23:59 23:59 Intake Total 1999 2100 2220 Output Total 500 1100 Balance 1999 1600 1120
[2023-01-01 14:00] VITALS: BP 143/88; PULSE 115; RESP 17; TEMP 36.6; O2SAT 100
[2023-01-01] MEDS: DOCUSATE SODIUM 100 MG CAPSULE PO (15:32)
--- NOTE | 2023-01-01 16:41 | PC.NURSE ---
Notified Dr. Ramos that patient has available bed @ [facility] and will be transferring via EMS this evening.
[2023-01-01 18:17] LABS: Glucose Point of Care 103 mg/dl (65-105)
[2023-01-01 18:35] VITALS: BP 139/92; PULSE 101; RESP 17; TEMP 36.7; O2SAT 100
[2023-01-01] MEDS: TEMAZEPAM (*CRX) 15 MG CAPSULE PO (19:56)
[2023-01-01 22:00] VITALS: BP 136/94; PULSE 90; RESP 16; TEMP 36.1; O2SAT 100
--- NOTE | 2023-01-13 09:53 | PM.TDS ---
Transfer Discharge Sum: Prov Provider Date of admission: 12/31/22 09:50 Primary care physician: PHYSICIAN NOT ON STAFF Admitting clinician: Spencer Gama MD Consults: 12/31/22 Consult to Physician Routine Comment: Consulting Provider: Jimi Ramos Reason for consultation: Pancreatitis, 19cm cyst Has provider been notified: Yes 12/31/22 09:52 Consult to Physician Routine Comment: spoke to dr @[phone] (,) Consulting Provider: Jimi Ramos order desk caller/MD group to consult: Dr Crump Reason for consultation: pancreatitis Has provider been notified: Yes DS: Admitting Diagnosis Discharge Date 01/01/23 Admitting Diagnosis admitted for pancreatitis w pseudocyst managed conservatively here and ultimately transferred to tertiary facility for ongoing management DS: Discharge Diagnosis Discharge Diagnosis (1) Systemic inflammatory response syndrome: Code(s): R65.10 - Systemic inflammatory response syndrome (SIRS) of non-infectious origin without acute organ dysfunction Status: Acute Assessment and Plan: With tachycardia, tachypnea, and leukocytosis. Secondary to pancreatitis. (2) Acute pancreatitis: Code(s): K85.90 - Acute pancreatitis without necrosis or infection, unspecified Status: Acute Assessment and Plan: Precipitating etiology is not entirely clear. He very rarely drinks alcohol and none recently. Triglycerides are well within normal limits. No mention of gallstones on imaging. He has been on Seroquel since October and he just so happens to have been having abdominal pain intermittently since that time as well. Seroquel can cause pancreatitis thus will hold for now. Continue supportive care including IV fluid rehydration and bowel rest. Analgesics and antiemetics available as needed. Dr. Ramos (GI) has been consulted and his input is greatly appreciated. (3) Abdominal mass, left upper quadrant: Code(s): R19.02 - Left upper quadrant abdominal swelling, mass and lump Status: Acute Assessment and Plan: Large left upper quadrant mass noted on CT, possible pancreatic pseudocyst with a differential diagnosis to include intraductal papillary mucinous neoplasm, mucinous cystic neoplasm, serous cystadenoma, and neuroendocrine tumor. MRCP is pending. Transfer initiated to [facility] for further workup though no bed is expected for the next several days. (4) Tobacco dependence: Code(s): F17.200 - Nicotine dependence, unspecified, uncomplicated Status: Acute Assessment and Plan: He declines the need for nicotine patch at this time. (5) Substance abuse: Code(s): F19.10 - Other psychoactive substance abuse, uncomplicated Status: Acute Assessment and Plan: Patient states he has been free of drugs since his overdose in October 2022. Transfer Discharge Sum: Med Medications Active and Home Medications: Home Medications quetiapine 25 mg tablet (Seroquel) 200 mg PO HS 12/19/22 [History Confirmed 12/31/22] Transfer Discharge Sum: Hosp Hospital Course Hospital course: Nghia Castro is a 22 year old male Time Spent with Patient Time attestation: Total time spent providing and/or coordinating transfer services: Exam Narrative: General: Moderately ill-appearing male lying on his left side in bed. Weight: 92 kg. BMI: 28.3. HEENT: Normocephalic, atraumatic. PERRL, EOMI. Sclera anicteric. Tacky mucous membranes. Neck: Supple. Respiratory: Lungs are clear to auscultation bilaterally. Cardiovascular: Regular rate and rhythm with S1-S2. Gastrointestinal: Abdomen is soft and nondistended with hypoactive bowel sounds. He is tender to palpation throughout the abdomen, more so in the epigastrium and left upper quadrant. There does appear to be a bit of a palpable mass in the left upper quadrant. Demonstrates voluntary guarding but no rebound tenderness.
== END 2023-01-01 21:35 | disposition short-term general hospital (02) | DRG 439 ==
LOC: ANHED 12-31 09:49 → ANH3MEDSUR 12-31 10:30
PROVIDERS: Physician Assistant; Admitting Provider Internal Medicine; Emergency Provider Emergency Medicine; Visit Provider Chiropractor
DX: K85.90 Acute pancreatitis without necrosis or infection, unspecified (principal); R65.10 Systemic inflammatory response syndrome (SIRS) of non-infectious origin without acute organ dysfunction; R19.02 Left upper quadrant abdominal swelling, mass and lump; F19.10 Other psychoactive substance abuse, uncomplicated; F17.210 Nicotine dependence, cigarettes, uncomplicated; F32.A Depression, unspecified
CPT/HCPCS: 36415; 71045; 74018; 74177; 74183; 76376; 80048; 80053; 80061; 80307; 81001; 82948; 83605; 83690; 83735; 84443; 85025; 96361; 96374; 96375; 96376; 99211; 99285; A9270; A9577; G0463; J1885; J2060; J2270; J2405; J2550; J2765; J3411; J7030; Q9967